=== PATIENT | male | born 1970 | race Two or more races ===

== ENCOUNTER 2020-07-05 15:29 | Emergency (ER) | payer OTHER ==
[~2020-07-05] VITALS: Ht 188 cm; Wt 112.5 kg
[~2020-07-05 15:29] MED LIST: ENDOCET 5/325 T1 TAB PO; FLEXERIL10 MG PO; IBUPROFEN800 MG PO; KETO10TA2 PO; MEDROL4 MG PO; MEDROLPACK PO; NEURONTIN600 MG PO; NEURONTIN800 MG PO; ORPH100T PO; OXYCONTIN10 MG PO; PERCOCET 5/321 UDTAB PO; PERCOCET 5/3251 TAB PO; PREDNISONE5 MG/DOSE- PO; RELAFEN PO; SEPTRA DS TABLE1 TAB PO; SKELAXIN800 MG PO; ULTRACET PO
[2020-07-05] MEDS ORDERED: LOSARTAN POTASS50 MG PO (15:57)
== END 2020-07-05 21:24 | disposition home or self-care (01) ==
LOC: ER 15:29
DX: M16.11 Unilateral primary osteoarthritis, right hip (principal)